=== PATIENT | male | born 2000 | race Caucasian/White ===

== ENCOUNTER 2023-11-12 21:33 | Emergency (ER) | payer BC, SELFPAY ==
[2023-11-12 21:37] VITALS: BP 154/61; PULSE 88; RESP 16; TEMP 37.1; O2SAT 97
--- NOTE | 2023-11-12 22:19 | ED.GENADUL_ITS ---
HPI General Date/Time Provider Initiated Documentation: 11/12/23 22:06 . HPI Narrative: 23-year-old male presents after slip and fall on ice, landed on step hitting left paraspinal lumbar region, pain with motion, able to walk, no bowel or bladder issues no numbness no tingling no weakness. Related Data Home Medications Medication Instructions Recorded Confirmed acetaminophen 325 mg capsule 1,000 mg PO ONCE PRN 11/12/23 11/12/23 (Tylenol) cyclobenzaprine 5 mg tablet 5 mg PO QHS PRN muscle spasm #7 11/12/23 tabs ibuprofen 200 mg tablet (Advil) 400 mg PO ONCE 11/12/23 11/12/23 lidocaine 5 % topical patch 1 patch topical DAILY PRN #15 ea 11/12/23 Previous Rx's Medication Instructions Recorded cyclobenzaprine 5 mg tablet 5 mg PO QHS PRN muscle spasm #7 11/12/23 tabs lidocaine 5 % topical patch 1 patch topical DAILY PRN #15 ea 11/12/23 Allergies Allergy/AdvReac Type Severity Reaction Status Date / Time No Known Allergies Allergy Unverified 11/12/23 21:49 General Stated Complaint: Orthopedic RASHMI: 4 Review of Systems Narrative: Review of Systems Constitutional: negative Eyes: negative ENT: negative Cardiovascular: negative Respiratory: negative Gastrointestinal: negative : negative Musculoskeletal: back pain Skin: negative Neurologic: negative Psych: negative Exam Narrative Exam Narrative: Physical Examination General: alert, awake, cooperative, resting comfortably, no acute distress HEENT: normocephalic, atraumatic; PERRL, EOM intact, conjunctiva normal; no nasal discharge; moist mucous membranes, oral and pharyngeal mucosa normal, tolerating secretions Neck: supple, trachea midline; full ROM Chest: normal to inspection Respiratory: normal respiratory effort, speaking in full sentences, clear to auscultation, no wheezing, rales or rhonchi Cardiac: regular rate, regular rhythm, S1S2 intact, no murmurs rubs or gallops GI: abdomen soft, non-tender, non-distended; no palpable mass or hepatosplenomegaly : Back: No midline spinal tenderness, contusion to lower lumbar paraspinal region with superficial abrasion overlying superior kvng of pelvic inlet, no crepitus deformity Skin: Superficial abrasion to left inferior lumbar paraspinal region Neuro: AAOx3, normal speech, moving all extremities; 5-5 strength upper and lower extremities bilaterally, normal speech, sensate, no ataxia Extremities: No deformity Psych: Appropriate mood and affect Course Vital Signs Vital signs: Vital Signs Temperature 37.1 C 11/12/23 21:37 Pulse 88 11/12/23 21:37 Respiratory Rate 16 11/12/23 21:37 Blood Pressure 154/61 H 11/12/23 21:37 Pulse Oximetry 97 11/12/23 21:37 Temperature 37.1 C 11/12/23 21:37 Temperature Source Temporal Artery Scan 11/12/23 21:37 Pulse 88 11/12/23 21:37 Respiratory Rate 16 11/12/23 21:37 Respiratory Effort Normal, Non-Labored 11/12/23 21:43 Blood Pressure 154/61 H 11/12/23 21:37 Blood Pressure Position Sitting 11/12/23 21:37 Pulse Oximetry 97 11/12/23 21:37 Oxygen Delivery Method Room Air 11/12/23 21:37 Oxygen Flow Rate 0 11/12/23 21:37 Pain Level 3 11/12/23 21:37 Medical Decision Making 23-year-old male presents after mechanical slip and fall on ice, contusion to lumbar paraspinal region with superficial abrasion, no midline spinal tenderness, patient is neurologically intact ambulatory no ataxia, full strength, afebrile nontoxic. Likely simple muscular contusion versus bony contusion low suspicion for fracture of column or pelvis; trial of analgesia anti-inflammatory. If no improvement after medication consider CT lumbar CT pelvis to assess for bony abnormality. 23: 25 limited improvement after medication. Will obtain imaging to assess for any spinal cord and/or pelvic injury. 23: 55 evidence of L2 left transverse process fracture. No evidence of cord impingement. Stable fracture. Home care instruction return precautions given. Quality:SDOH Health Related Social Needs: No Data to Display PFSH All Active Problems (Updated 11/12/23 @ 23:56 by David Summers MD) Fracture of transverse process of lumbar vertebra (Acute) Social History Smoking/Tobacco Use Status: Never Smoking risk assessment performed?: Yes Alcohol Intake: current Alcohol Intake frequency: a few times a week Drug use: Never Substance use type: does not use Housing: house Do you feel safe at home: Yes Do you feel safe in your relationship?: Yes PAWSS Have you Been Recently Intoxicated or Drunk Within the Last 30 days?: No Have you Ever Experienced Previous Episodes of Alcohol Withdrawal?: No Have you ever Experienced Withdrawal Seizures?: No Have you ever Experienced Delirium Tremens(DT)s?: No Have you ever undergone Alcohol Rehabilitation Treatment (i.e, inpt ot outpatient treatment programs)?: No Have you ever Experienced Blackouts?: No Have you ever Combined Alcohol with other Downers within the last 90 days?: No Have you ever Combined Alcohol with any other Substance of Abuse during the last 90 days?: No Positive Blood Alcohol level on Presentation? [PCS.BAL]: No Evidence of Increased Autonomic Activity (i.e. HR>120, tremor, sweating, agitation, nausea)?: No Result: 0 Discharge Plan Disposition Patient Disposition: Home Condition: Stable Discharge Details Clinical Impression: Fracture of transverse process of lumbar vertebra Primary Care Provider: None,None ED Provider: David Summers Home Meds and New Rx's Prescriptions: New cyclobenzaprine 5 mg tablet 5 mg PO QHS PRN (Reason: muscle spasm) Qty: 7 0RF lidocaine 5 % adhesive patch,medicated 1 patch topical DAILY PRNQty: 15 0RF Rx Instructions: leave on most painful area for up to 12 hrs No Action acetaminophen [Tylenol] 325 mg capsule 1,000 mg PO ONCE PRN ibuprofen [Advil] 200 mg tablet 400 mg PO ONCE Discharge Instructions Instructions: Transverse Process Fracture (ED) Additional Instructions: Continue with ice heat ibuprofen and/or acetaminophen as needed for pain. Please return to the emergency department for any worsening symptoms such as but not limited to numbness weakness tingling bowel or bladder issues inability to walk or other abnormal symptoms. Follow-up close with your primary care physician. Stand Alone Forms: Work Release
[2023-11-12] MEDS: Lidocaine 5% Patch 1 PATCH TP (22:28)
[2023-11-12] MEDS: Cyclobenzaprine 10 MG TAB PO (22:28)
[2023-11-12] MEDS: Dexamethasone 10 MG/ML VIAL PO (22:28)
--- NOTE | 2023-11-12 23:00 | DI.CT_ITS ---
Exam(s) CT LUMBAR SPINE WO EXAM: CT LUMBAR SPINE WO CLINICAL HISTORY: slip fall, back pain, left paraspinal. TECHNIQUE: Imaging Protocol: Axial computed tomography images with coronal and sagittal reformatted images were created and reviewed. COMPARISON: No exams were available for comparison FINDINGS: Bones: There is a nondisplaced fracture of the left L2 transverse process. The alignment of the spin e is normal including the thoracolumbar junction. Soft tissues: The soft tissues of the visualized abdomen and chest are unremarkable. No large disk he rniations are identified. IMPRESSION: Acute nondisplaced fracture of the left L2 transverse process. RADIATION DOSE DELIVERED: 877.38mGy.cm Total DLP 877.38mGy.cm Total DLP DATA REPOSITORY: All CT scans at this facility are submitted to the National Radiology Data Registry (NRDR) Dose Index Registry (DIR) with the [employer] ([employer]). RADIATION OPTIMIZATION: All CT scans at this facility use at least one of these dose optimization te chniques: automated exposure control; mA and/or kV adjustment per patient size (includes targeted exa ms where dose is matched to clinical indication); or iterative reconstruction.
--- NOTE | 2023-11-12 23:00 | DI.CT_ITS ---
Exam(s) CT PELVIC WO EXAM: CT PELVIC WO CLINICAL HISTORY: fall, back pain, left posterior hip/pelvic pain. TECHNIQUE: Imaging Protocol: Axial computed tomography images with coronal and sagittal reformatted images were created and reviewed. COMPARISON: CT CT LUMBAR SPINE WO from 11/12/2023 FINDINGS: Bones: The osseous structures and articular surfaces are intact. Bony alignment is satisfactory. N o cellulitic or osteomyelitic changes are identified. There is no evidence of joint space narrowing or cystic degeneration seen. No lytic or sclerotic lesions are identified. Soft Tissues: The pelvic structures show no acute abnormality. IMPRESSION: No acute fracture or dislocation. RADIATION DOSE DELIVERED: 877.38mGy.cm Total DLP 877.38mGy.cmTotal DLP DATA REPOSITORY: All CT scans at this facility are submitted to the National Radiology Data Registry (NRDR) Dose Index Registry (DIR) with the [employer] ([employer]). RADIATION OPTIMIZATION: All CT scans at this facility use at least one of these dose optimization te chniques: automated exposure control; mA and/or kV adjustment per patient size (includes targeted exa ms where dose is matched to clinical indication); or iterative reconstruction.
[2023-11-12] MEDS: Ketorolac 15 MG/ML VIAL IM (23:16)
[2023-11-12] MEDS: LORazepam 0.5 MG TAB PO (23:17)
--- NOTE | 2023-11-13 00:01 | DI.VRAD_ITS ---
PROCEDURE INFORMATION: Exam: CT Pelvis Without Contrast Exam date and time: 11/12/2023 11:19 PM Age: 23 years old Clinical indication: Injury or trauma; Blunt trauma (contusions or hematomas); Pelvic region; Injury date: 11/12/23; Injury details: Fall, back pain, left posterior hip/pelvic pain TECHNIQUE: Imaging protocol: Computed tomography of the pelvis without contrast. Radiation optimization: All CT scans at this facility use at least one of these dose optimization techniques: automated exposure control; mA and/or kV adjustment per patient size (includes targeted exams where dose is matched to clinical indication); or iterative reconstruction. COMPARISON: CT LUMBAR SPINE WO 11/12/2023 11:19 PM FINDINGS: Stomach and bowel: Visualized small bowel and colon are unremarkable. Appendix: No evidence of appendicitis. Intraperitoneal space: Unremarkable. No free air. No significant fluid collection. Lymph nodes: Unremarkable. No enlarged lymph nodes. Urinary bladder: Normal. No mass. Reproductive: Normal as visualized. Bones/joints: Unremarkable. No acute fracture. No dislocation. Soft tissues: Unremarkable. IMPRESSION: No acute findings. Dictated and Authenticated by: Murali Saleh MD. Ordering:JAILENE Hernandez MD
--- NOTE | 2023-11-13 00:02 | DI.VRAD_ITS ---
Addendum created by Aliyah Pena MD on 11/13/2023 2:06:03 AM EST: ADDENDUM: Acute nondisplaced fracture of left L2 transverse process. Straightening of normal lordotic curvature likely muscle spasm. Initial report created on 11/13/2023 12:02:08 AM EST: PROCEDURE INFORMATION: Exam: CT Lumbar Spine Without Contrast Exam date and time: 11/12/2023 11:19 PM Age: 23 years old Clinical indication: Injury or trauma; Blunt trauma (contusions or hematomas); Injury date: 11/12/23; Injury details: Slip fall, back pain, left paraspinal TECHNIQUE: Imaging protocol: Computed tomography of the lumbar spine without contrast. Radiation optimization: All CT scans at this facility use at least one of these dose optimization techniques: automated exposure control; mA and/or kV adjustment per patient size (includes targeted exams where dose is matched to clinical indication); or iterative reconstruction. COMPARISON: CT PELVIC WO 11/12/2023 11:19 PM FINDINGS: Bones/joints: No acute fracture. Normal alignment. No significant disc bulge or herniation. No severe spinal canal stenosis. No significant neural foraminal narrowing. Soft tissues: Unremarkable. IMPRESSION: No acute findings. Dictated and Authenticated by: Aliyah Pena MD. Ordering:JAILENE Hernandez MD
== END 2023-11-13 00:11 | disposition home or self-care (01) ==
PROVIDERS: Emergency Provider Emergency Medicine
DX: S32.028A Other fracture of second lumbar vertebra, initial encounter for closed fracture (principal); W00.0XXA Fall on same level due to ice and snow, initial encounter
CPT/HCPCS: 96372; 99284; 72131; 72192; J1100; J1885